=== PATIENT | male | born 1960 | race Caucasian/White ===

== ENCOUNTER 2020-07-13 11:07 | Outpatient (NON) | payer OTHER, SELFPAY ==
[2020-07-14 18:19] LABS: SARS-CoV-2 RNA PCR Negative
== END 2020-07-13 11:08 ==
LOC: ANHCOVIDDT 11:09
PROVIDERS: PCP Family Medicine; Visit Provider Family Medicine
DX: R05 Cough (principal); R50.9 Fever, unspecified; Z20.828 Contact with and (suspected) exposure to other viral communicable diseases
CPT/HCPCS: 87635; C9803; U0003

== ENCOUNTER 2020-12-04 17:16 | Outpatient (CLI) | payer OTHER, SELFPAY ==
--- NOTE | ~2020-12-04 | XR_ITS ---
EXAMINATION: XR shoulder RT min 2V EXAM DATE: 12/04/2020 17:38 INDICATION: No known recent injury provided at this time. Pain of the right shoulder. TECHNIQUE: The following right shoulder projections obtained: frontal projection with internal rotati on, frontal projection with external rotation, Grashey, and scapular Y view (4+ views). There is no prior study for comparison. FINDINGS: No evidence of right shoulder rotator cuff calcific tendinosis. There is moderate glenohum eral and acromioclavicular joint primary osteoarthritis. There are no acute fractures or dislocations identified. There is no subcutaneous gas. The soft tissue is unremarkable. There are no radiopaq ue foreign bodies. IMPRESSION: Moderate right shoulder osteoarthritis. Reviewed, dictated and finalized at location A.
== END 2020-12-04 17:17 | disposition home or self-care (01) ==
PROVIDERS: PCP Family Medicine; Visit Provider Family Medicine
DX: M19.011 Primary osteoarthritis, right shoulder (principal)
CPT/HCPCS: 73030

== ENCOUNTER 2022-04-28 11:47 | Outpatient (CLI) | payer OTHER, SELFPAY ==
--- NOTE | 2022-04-28 12:39 | ECG_ITS ---
Measurements Intervals [place] Rate: 73 P: 17 NV: 164 QRS: -1 QRSD: 90 T: 23 QT: 377 QTc: 417 Interpretive Statements SINUS RHYTHM BASELINE ARTIFACT PRESENT NO PREVIOUS ECG AVAILABLE FOR COMPARISON Electronically Signed On 04-28-2022 17:34:03 CDT by Jairon Bryan M.D.
[2022-04-28 13:03] LABS: Basophils Percent Auto 0.5 % (0.2-1.2); Eosinophils Absolute Auto 0.1 K/mm3 (0-0.3); Eosinophils Percent Auto 1.9 % (0-4.4); Hematocrit 42.2 % (42.0-52.0); Hemoglobin 13.9 g/dL (14.0-18.0); Immature Granulocyte Absolute 0.01 K/mm3 (0.00-0.031); Immature Granulocyte Percent A 0.2 % (0-0.5); Lymphocytes Absolute Auto 1.42 K/mm3 (0.9-3.2); Lymphocytes Percent Auto 24.4 % (18.3-44.2); Mean Corpuscular HGB Conc 32.9 g/dl (32-36); Mean Corpuscular Hemoglobin 28.8 pg (26-34); Mean Corpuscular Volume 87.4 fl (80-100); Mean Platelet Volume 8.5 fl (7.4-10.4); Monocytes Absolute Auto 0.5 K/mm3 (0.1-0.6); Monocytes Percent Auto 9.1 % (2.6-8.5); Neutrophils Absolute Auto 3.7 K/mm3 (1.3-6.7); Neutrophils Percent Auto 63.9 % (45.5-73.1); Platelet Count Result 224 k/mm3 (150-375); Red Blood Count 4.83 M/mm3 (4.6-6.20); Red Cell Distribution Width 12.9 % (11.5-14.5); White Blood Count 5.8 K/mm3 (4.5-10.0)
== END 2022-04-28 11:48 | disposition home or self-care (01) ==
LOC: ANHSURGERY 11:54
PROVIDERS: PCP Family Medicine; Visit Provider Orthopaedic Surgery
DX: M19.011 Primary osteoarthritis, right shoulder (principal); I10 Essential (primary) hypertension; Z01.818 Encounter for other preprocedural examination
CPT/HCPCS: 36415; 85025; 87081; 93005

== ENCOUNTER 2022-05-26 01:58 | Day surgery (SDC) | payer OTHER, SELFPAY ==
[2022-04-28 12:12] VITALS: BP 120/72; PULSE 83; RESP 16; TEMP 36.7; O2SAT 100; BMI 27.0
--- NOTE | 2022-04-28 12:22 | PC.NURSE ---
Report to the Outpatient Waiting Room, entrance under the green pavilion located off [facility], at time _6:00am on date __05/26/22 . OR Time: __7:30am . Time changes happen often and if your time is changed the preop area will call you the afternoon before. - You and your visitor will be asked to self-screen and do not enter if you have any COVID symptoms. - Only one visitor and NO children visitors are allowed at this time. - The patient visitor is requested to leave or wait in car when not with patient due to restrictions. - A mask is required within the hospital. Patients may have clear liquids (water, carbonated beverages, clear teas, apple juice) until 3 hours prior to surgery with a maximum of 20 ounces. - No food from midnight until time of surgery Take the following medications with a SIP of water the morning of surgery: __none Medications to discontinue per physician ___hold diclofenac 7 days pre-op Date to take last dose____05/19/22 Please no make-up, nail albanian, hairspray, perfume, deodorant, or body powder the day of surgery. No jewelry (including any body piercings) or valuables the day of surgery, leave them at home. Please take a shower or bath the night before, or the morning of, surgery with an antibacterial soap. Wear comfortable, loose fitting clothing. Children are encouraged to wear pajamas. - Jewelry must be removed prior to entering the operating room. Rings and piercings that are not removed may be cut off. - The hospital will not accept responsibility for valuables. - Please leave all valuables, including medications, at home the day of surgery. If you are going home after surgery, a licensed regional truck driver must drive you home. - NO public transportation without another adult. - We recommend that an adult stay with you for 24 hours following discharge. - We also recommend that you do not drive, make important decision, drink alcoholic beverages, or take any drugs that were not prescribed by your health care provider for at least 24 hours after your discharge time. Follow any additional instructions given to you from your surgeon. If you or anyone in your household have experienced Covid symptoms in the past week, please notify your surgeon or the nurse liaison at the phone number below for possible testing. Telephone instructions given to _patient and wife and asked if any additional questions and then verbalized understanding. Patient advised to call surgeon office or pre surgery nurse liaison [phone] if any additional questions.
[2022-05-26] VITALS (16 sets, daily range): BP systolic 121–148; BP diastolic 60–94; PULSE 80–116; RESP 12–25; TEMP 36.3–36.8; O2SAT 94–100
--- NOTE | ~2022-05-26 | XR_ITS ---
EXAMINATION: XR shoulder RT min 2V DATE: 05/26/2022 11:48 INDICATION: Right shoulder arthroplasty TECHNIQUE: 2 views right shoulder FINDINGS: There is a right shoulder arthroplasty in expected position. Subcutaneous gas with soft ti ssue swelling are consistent with recent surgery. IMPRESSION: 1. Recent right shoulder arthroplasty. Reviewed, dictated and finalized at location A.
--- NOTE | ~2022-05-26 | CT_ITS ---
EXAMINATION: CTA chest PE protocol DATE: 05/26/2022 15:06 INDICATION: Generalized chest pain following shoulder replacement. TECHNIQUE: Computed tomography (CT) pulmonary angiogram of the chest was performed with 100 mL Omnipa que-350 intravenous contrast. Additional 3D reconstructions utilizing coronal maximum intensity proje ction (MIP) were performed. Automated exposure control and iterative reconstruction technique were em ployed. The dose-length product was 805.35 mGy-cm. COMPARISON: None FINDINGS: Good contrast opacification of the pulmonary arteries. There is moderate streak artifact from dense c ontrast in the left brachiocephalic vein, superior vena cava and right atrium as well as from the rec ently placed incompletely visualized right total shoulder arthroplasty. Minimal scattered respiratory motion artifact which does not significantly limit evaluation. No pulmonary embolism. Partial collap se of the right lower lobe. Minimal dependent atelectasis in the left lower lobe. Calcified left lowe r lobe nodule and calcified left hilar and mediastinal lymph nodes consistent with old granulomatous disease. No pneumonia, pulmonary edema or pleural effusion. Heart size is normal. No pericardial effu gisell. Thoracic aorta is normal in caliber with no dissection. No pathologically enlarged thoracic lym phadenopathy. Small sliding-type hiatal hernia. Right renal cysts the largest measuring 4.5 cm. Chron ic mild anterior wedging at T7 and T8. Small amount of postoperative soft tissue gas about the right shoulder. IMPRESSION: 1. No pulmonary embolism. 2. Partial collapse of the right lower lobe. 3. Small sliding-type hiatal hernia. Reviewed, dictated and finalized at location B.
--- NOTE | 2022-05-26 06:38 | WPDANESEPPF ---
Anes - Initial Pre Proc Eval Procedure: Operation Date: 05/26/22 07:30 Proposed Procedures p Anatomic Right Total Shoulder Arthroplasty - Keanu Zaragoza MD Date/Time: 05/26/22 06:38 Surgeon: Keanu Zaragoza MD Pre Op Diagnosis: glenohumeral joint arthritis right shoulder Patient Data Age: 62 Gender: M Height: 1.75 m Weight: 82 kg Last Vital Signs Temp 36.6 C 05/26/22 06:10 Pulse 80 05/26/22 06:10 Resp 18 05/26/22 06:10 BP 134/94 H 05/26/22 06:10 Pulse Ox 100 05/26/22 06:10 O2 Del Method Room Air 05/26/22 06:10 Allergies Allergy/AdvReac Type Severity Reaction Status Date / Time No Known Allergies Allergy Unknown Verified 05/26/22 06:05 Home Medications Medication Instructions Recorded Confirmed Type calcium carbonate 400 mg calcium 400 mg PO DAILY PRN Indigestion 12/14/21 05/16/22 History (1,000 mg) chewable tablet (Tums Ultra) diclofenac sodium 1 % topical gel 2 g topical QID PRN Pain 12/14/21 05/16/22 History esomeprazole magnesium 20 mg 20 mg PO DAILY 12/14/21 05/16/22 History capsule,delayed release (Nexium) lisinopril 10 mg tablet 10 mg PO DAILY 12/14/21 05/16/22 History rosuvastatin 5 mg tablet 5 mg PO DAILY 12/14/21 05/16/22 History Patient hx anesthesia problems: none Family hx anesthesia problems: none Results Review: All pre-operative results and documents have been reviewed as part of the pre-operative evaluation. [facility] Past Medical History Medical History Abnormal liver function Gastroesophageal reflux disease without esophagitis Hx of colonic polyp Hyperlipidemia Hypertension Family History Family History Other Malignant neoplasm of prostate Social History Social History Smoking packs per day: 1 Smoking cigarettes per day: 20.0 Years smoked: 11 Smoking pack-years: 11.00 Smoking status: Former smoker Tobacco type: cigarettes Smoking end date: 01/21/85 Alcohol intake: current Drinks per week: 7 Substance use: never Has the Lack of Transportation Kept You From Medical Appointments or From Getting Medications?: No Within the Past 12 Months, Were You Worried Whether Your Food Would Run Out Before You Got Money to Buy More?: Never True What is Your Housing Situation Today?: I Have Housing Are You Worried That in the Next 2 Months, You May Not Have Your Own Housing to Live In?: No Do You Have Trouble Paying Your Heating Or Electricity Bill?: No Do You Have Trouble Paying For Medicines?: No Are You Currently Unemployed and Looking for Work?: No Highest Level of Education Completed: Trade/Vocational Certificate Do You Have Trouble With Childcare or the Care of a Family Member?: No Living arrangements: with family Additional living arrangements comments: Spiritual care concerns: No Anes - Eval Final PreProcedure Day of Procedure 05/26/22 06:38 Patient weight: overweight Heart: regular rate and rhythm Lungs: clear to auscultation Airway: Mallampati scale class II Neurological: alert and oriented Last oral intake: >/= 8 hours ASA classification: II Emergent: no Anesthetic plan: proceed Anesthesia type and monitoring: general ETT and standard monitoring Results Review: All pre-operative results and documents have been reviewed as part of the pre-operative evaluation. Informed Consent: The patient's anesthetic plan and its attendant risks and benefits were discussed with the patient/family/POA. Questions were solicited and answers provided to the satisfaction of the patient/family/POA.
[2022-05-26] MEDS: LACTATED RINGERS 1,000 ML 30 ML IV CONT ×3 (06:39→12:06)
[2022-05-26] MEDS: ACETAMINOPHEN 500 MG TABLET 1000 MG PO (06:51)
[2022-05-26] MEDS: TRANEXAMIC ACID 1,000MG/ISO100 1,000 MG/100 ML BAG 200 MG IVPB (06:52)
--- NOTE | 2022-05-26 07:19 | WPDHPUPDATE1 ---
History and Physical Update Update Date/Time: 05/26/22 07:19 History and Physical has been reviewed, including an updated exam of the patient. There are NO changes in the patient's condition. Risks, benefits, and alternatives have been discussed and questions answered. Patient agrees to proceed with procedure.
--- NOTE | 2022-05-26 07:32 | WPDANESPNB ---
Anes - Peripheral Nerve Block Date/Time: 05/26/22 07:32 I have discussed with the patient/family/POA the placement of a peripheral nerve block for post-operative pain management, including associated risks, benefits, complications, and side effects. Alternative methods of post-operative analgesia were detailed. Questions were solicited and answers provided to the satisfaction of the patient/family/POA. Time-Out: A pre-procedural Time-Out was completed immediately before starting the procedure and confirmed: Patient Identification, Site, Procedure, Patient Position and the Availability of Requisite Equipment. Clinical Indications: Acute post-operative pain management requested by the operative surgeon. Nerve Block Insertion Note Anes-nerve block: interscalene right Skin prep: chlorhexidine Needle: 22 gauge, stimulating, insulated echogenic needle. Needle length: 50 mm Technique: ultrasound Injectate: bupivacaine 0.5% with epi 5 mcg/ml (30cc no epi) and dexamethasone (mg) (8) Observations: tolerated well Complications: none Procedure start time:: 720 Procedure end time:: 725
[2022-05-26] MEDS: ceFAZolin 2 GM/D5W 50 ML 2 GM/50 ML BAG IVPB ×3 (07:33→23:31)
[2022-05-26] MEDS: VANCOMYCIN HCL 1,000 MG VIAL 1000 MG TOPICAL (08:33)
[2022-05-26] MEDS: HYDROGEN PEROXIDE 3% SOLN(*SP) 473 ML BOTTLE 237 ML IRRIGATION (08:34)
--- NOTE | 2022-05-26 13:00 | ADMGEN ---
This patient, Uri Olivares, was admitted to Medical Room 250-01. Patient/family oriented to hospital policies and general routines including ID bracelet, bed and alarms, visiting hours, pain management, procedures, bathroom and other care routines, personal items, smoking policy, room service/diet, and visiting hours. Information on how to activate the Rapid Response Team has been discussed. Patient/Family are encouraged to report perceived risks to care and to ask questions if they do not understand what they are told or what they should do.
[2022-05-26] MEDS: SODIUM CHLORIDE 0.9% IV 1,000 ML 125 ML IV CONT (13:12)
--- NOTE | 2022-05-26 13:13 | ECG_ITS ---
Measurements Intervals [place] Rate: 102 P: 28 WV: 168 QRS: -2 QRSD: 114 T: 3 QT: 368 QTc: 480 Interpretive Statements SINUS TACHYCARDIA DELAYED PRECORDIAL R/S TRANSITION NONSPECIFIC ST & T-WAVE ABNORMALITY- INF/HIGH LAT LEADS BORDERLINE ECG COMPARED TO ECG 04/28/2022 13:00:06 SINUS TACHYCARDIA NOW PRESENT T-WAVE ABNORMALITY NOW PRESENT Electronically Signed On 05-26-2022 13:30:46 CDT by Grant Mead D.O.
[2022-05-26 13:32] LABS: Basophils Percent Auto 0.1 % (0.2-1.2); Hematocrit 37.5 % (42.0-52.0); Hemoglobin 12.5 g/dL (14.0-18.0); Immature Granulocyte Absolute 0.05 K/mm3 (0.00-0.031); Immature Granulocyte Percent A 0.4 % (0-0.5); Lymphocytes Absolute Auto 0.31 K/mm3 (0.9-3.2); Lymphocytes Percent Auto 2.7 % (18.3-44.2); Mean Corpuscular HGB Conc 33.3 g/dl (32-36); Mean Corpuscular Hemoglobin 28.9 pg (26-34); Mean Corpuscular Volume 86.6 fl (80-100); Mean Platelet Volume 8.5 fl (7.4-10.4); Monocytes Absolute Auto 0.1 K/mm3 (0.1-0.6); Monocytes Percent Auto 0.8 % (2.6-8.5); Neutrophils Absolute Auto 10.9 K/mm3 (1.3-6.7); Platelet Count Result 200 k/mm3 (150-375); Red Blood Count 4.33 M/mm3 (4.6-6.20); Red Cell Distribution Width 12.7 % (11.5-14.5); White Blood Count 11.4 K/mm3 (4.5-10.0)
[2022-05-26 13:49] LABS: Alanine Aminotransferase 27 U/L (6-50); Alkaline Phosphatase 64 U/L (38-126); Anion Gap 13 mmol/L (8-16); Aspartate Amino Transferase 29 U/L (17-59); Bilirubin,Total 0.4 mg/dL (0.2-1.3); Blood Urea Nitrogen 17 mg/dL (9-20); Calcium 8.2 mg/dL (8.4-10.2); Carbon Dioxide 23 mmol/L (22-30); Chloride 101 mmol/L (98-107); Estimated CRCL calculation 81 ml/min; Estimated Glomerular Filt Rate > 60; Glucose 164 mg/dL (65-110); Potassium 3.4 mmol/L (3.4-5.0); Sodium 137 mmol/L (137-145)
[2022-05-26 13:56] LABS: Creatine Kinase 277 U/L (55-170)
[2022-05-26 14:09] LABS: Troponin I < 0.012 ng/mL (0.000-0.034)
[2022-05-26 14:11] LABS: Platelet Estimate Adequate (Adequate); Schistocytes None Seen (NORMAL)
[2022-05-26] MEDS: PANTOPRAZOLE SODIUM IV 40 MG VIAL IV PUSH (14:39)
--- NOTE | 2022-05-26 15:02 | PM.IMCN ---
Assessment and Plan Assessment and plan (1) Chest pressure: Code(s): R07.89 - Other chest pain Status: Acute Assessment and Plan: -the stated that sometimes the patient gets like this when he has acid reflux. -chest CTA was negative for pulmonary emboli. His partial collapse of the right lower lobe. I did order incentive spirometer. He also has a small sliding type hiatal hernia. -the pain did not radiate to his neck or his arm and the patient was not diaphoretic. The patient was only complaining of some chest tightness. -continue to trend cardiac enzymes. -I did consult Cardiology for ST changes. -I reviewed the EKG with cardiology he stated that there was no new ischemic changes. So I will cancel the consult. (2) Aftercare following right shoulder joint replacement surgery: Code(s): Z47.1 - Aftercare following joint replacement surgery; Z96.611 - Presence of right artificial shoulder joint Status: Acute Assessment and Plan: -postop care per orthopedic physician. Surgical site care per orthopedic doctor. -pain management per orthopedic doctor. The patient is on Tylenol and Mobic as well as oxycodone DVT prophylaxis per orthopedic physician. The patient is on SCDs and TEDs. (3) Hyperlipidemia: Code(s): E78.5 - Hyperlipidemia, unspecified Status: Acute Assessment and Plan: -continue with Crestor and heart healthy diet (4) Hypertension: Code(s): I10 - Essential (primary) hypertension Status: Acute Assessment and Plan: -continue with lisinopril and check daily BMP. HPI Data of Consult Consult date: 05/26/22 Requesting Physician: Keanu Zaragoza MD Primary Care Provider: Tesfaye Singh MD Consult Narrative Narrative: Uri Olivares is a 62 year old male who is a left-hand dominant male patient patient has been complaining of consistent right shoulder pain which is diffuse and worse with reaching and over head activities. His symptoms have progressively gotten worse. It affects his sleep when he has pain at night. His tried nonsteroidal anti-inflammatory medication in the past. The patient decided to undergo anatomic right shoulder shoulder arthroplasty. See operative note. The patient started to complain of midsternal pressure without any radiation. No nausea no vomiting and no diaphoresis. The stated that the patient gets these complaints sometimes with his acid reflux. CTA was ordered. EKG was ordered. EKG was read as sinus tachycardia. Nonspecific ST and T-wave MRI abnormality. The patient is admitted to outpatient procedure extended recovery order in the hospitalist group was asked to consult on this patient on the date of service of 05/26/2022. Review of Systems Review of Systems: See HPI All systems reviewed & are unremarkable except as noted in HPI and below Constitutional: Constitutional: Reports as per HPI and Reports no additional constitutional complaints Eyes: Eyes: Reports as per HPI and Reports no additional eye complaints ENT: Reports system reviewed and no additional complaints, except as documented and Reports Normal hearing present Cardiovascular: Cardiovascular: Reports no additional cardiovascular complaints Respiratory: Respiratory: Reports no additional respiratory complaints and Reports no additional respiratory complaints Gastrointestinal: Gastrointestinal: Reports as per HPI and Reports no additional gastrointestinal complaints Musculoskeletal: Musculoskeletal: Reports no additional musculoskeletal complaints Integumentary/Breasts: Skin/Breast: Reports system reviewed and no additional complaints, except as docu and Reports as per HPI Neurologic: Reports system reviewed and no additional complaints, except as documented, Reports as per HPI and Reports Normal hearing present Psychiatric: Psychiatric: Reports no additional psychiatric complaints and Reports as per HPI Endocrine: Endocrine: Re
--- NOTE | 2022-05-26 15:11 | PCOTNOTE ---
Attempted to see pt. for occupational therapy evaluation. Pt. returning from testing, still reporting nausea and residual sedation. Pt. and nursing requested to wait on evaluation. Following
--- NOTE | 2022-05-26 15:21 | PCPTNOTE ---
Attempted to see pt. for Physical therapy evaluation. Pt. returning from testing, still reporting nausea and residual sedation. Pt. and nursing requested to wait on evaluation. Following
--- NOTE | 2022-05-26 15:40 | ECG_ITS ---
Measurements Intervals [place] Rate: 108 P: 33 ID: 189 QRS: -2 QRSD: 102 T: 3 QT: 356 QTc: 479 Interpretive Statements SINUS TACHYCARDIA BORDERLINE R WAVE PROGRESSION, ANTERIOR LEADS BORDERLINE T WAVE ABNORMALITY- INFERIOR LEADS ABNORMAL ECG COMPARED TO ECG 05/26/2022 13:23:59 NO SIGNIFICANT CHANGES Electronically Signed On 05-26-2022 19:05:09 CDT by Grant Mead D.O.
[2022-05-26] MEDS: ASPIRIN 81 MG CHEWABLE TABLET 324 MG PO (15:44)
[2022-05-26 16:47] LABS: Troponin I < 0.012 ng/mL (0.000-0.034)
--- NOTE | 2022-05-26 16:56 | W.PM.PROC2 ---
Procedure Note - Detailed Date of Procedure 05/26/22 Pre-op Diagnosis glenohumeral joint arthritis right shoulder Post-op Diagnosis Same Procedure Performed 1. Anatomic total shoulder arthroplasty, right 2. Lesser tuberosity osteotomy, right Surgeon Keanu Zaragoza MD Harness Puller Kirsten Andre PA-C Anesthesia General and Regional (Interscalene block.) Findings Excellent bone quality. Thickened and tight capsule released posteriorly. No significant version correction required. Anatomic neck cut at 25 degrees. Description of Procedure The patient was given an interscalene block in the preoperative area. Preoperative antibiotics were given. The patient was transferred to the operating room and a general anesthetic was administered. The beach chair position was used at 35 degrees. All bony prominences were padded. The head was carefully stabilized on the [place] head athletic trainer. A sterile prep and drape was performed in the usual manner with Chloraprep. A longitudinal incision was created at the anterior shoulder just lateral to the deltopectoral interval. Careful dissection was performed to expose the interval and protect the cephalic vein. The vein was retracted medially. The upper border of the pectoralis was released. Anterior circumflex vessel branches were suture ligated. The biceps was tenodesed. A small lesser tuberosity osteotomy was performed after opening the joint capsule at the rotator interval. The inferior capsule was released, exposing the humeral head. Osteophytes were removed. Care was taken to stay on bone to protect the axillary nerve. A Fukuda was placed in the joint. The subscapularis was mobilized, the inferior capsule and long head of triceps released, and the superior and middle glenohumeral ligaments released as well. Attention was turned to the humerus again. The anatomic head cut was taken with the oscillating saw. Sounding and broaching was performed. The neck anteversion and inclination were carefully assessed. Head sizing and offset were determined. The cut protector was placed, and attention was turned to the glenoid. Retractors were placed. Releases were carried out for exposure, including the posterior capsule. Labral tissue was resected. The sizing template was used and a guide pin was placed. No deformity correction was performed. The reamer was placed over the guide pin taken down to create a 2-3 millimeter minimal wall. The peg drill guide was applied and the pegs drilled. The trial component was placed and fit very nicely. Excellent stability was confirmed. The real component was cemented into position. Excess cement was carefully removed. The humerus was prepared for subscapularis repair with the drilling and passage of 3 suture leaders. The real humeral stem and head were impacted into position. The shoulder was copiously irrigated periodically with pulsatile lavage. The shoulder was reduced and the subscapularis repaired with number 5 Ethibond suture modified Shahbaz-Thaddeus sutures, and reinforced with multiple number 2 Ethibond suture. An additional ethibond suture was placed around the implant neck. The rotator interval was reapproximated laterally. The biceps tenodesis was incorporated with the pectoralis tendon repair using #2 Ethibond suture. The deltopectoral space was reapproximated with 2-0 Vicryl. The remaining tissue was closed with 0 Quill and 2-0 Quill running suture and steri-strips. A sterile dressing and shoulder immobilizer was placed. The patient was transferred to the recovery room. Physician liaison inspection laboratory assistant, Kirsten Andre PA-C, required for surgery; including patient positioning, draping, tissue retraction, maintaining instrument position, cement removal, wound closure, and dressing placement. Implants Shoulder Innovations Inset Shoulder System; humeral short stem size 1 Offset Humeral Head 18 x 46. Glenoid Circular In Line Peg 24 x 6mm. Tranzuy CMW 2 (quick set) Gentamicin Bone Cement 20 g. Estim
[2022-05-26] MEDS: SENNA/DOCUSATE SODIUM TABLET 2 TAB PO (17:20)
[2022-05-26] MEDS: MELOXICAM 7.5 MG TABLET PO (17:20)
[2022-05-26] MEDS: SCOPOLAMINE 1.5 MG PATCH TRANSDERM (18:20)
[2022-05-26 20:50] LABS: Troponin I < 0.012 ng/mL (0.000-0.034)
[2022-05-27] VITALS: PULSE 93
[2022-05-27 04:00] VITALS: PULSE 84
[2022-05-27 05:49] LABS: Hematocrit 34.5 % (42.0-52.0); Hemoglobin 11.4 g/dL (14.0-18.0); Immature Granulocyte Absolute 0.05 K/mm3 (0.00-0.031); Immature Granulocyte Percent A 0.5 % (0-0.5); Lymphocytes Absolute Auto 0.99 K/mm3 (0.9-3.2); Lymphocytes Percent Auto 9.4 % (18.3-44.2); Mean Corpuscular Hemoglobin 28.2 pg (26-34); Mean Corpuscular Volume 85.4 fl (80-100); Mean Platelet Volume 8.6 fl (7.4-10.4); Monocytes Absolute Auto 0.9 K/mm3 (0.1-0.6); Monocytes Percent Auto 8.6 % (2.6-8.5); Neutrophils Absolute Auto 8.6 K/mm3 (1.3-6.7); Neutrophils Percent Auto 81.5 % (45.5-73.1); Platelet Count Result 197 k/mm3 (150-375); Red Blood Count 4.04 M/mm3 (4.6-6.20); Red Cell Distribution Width 12.9 % (11.5-14.5); White Blood Count 10.5 K/mm3 (4.5-10.0)
[2022-05-27 06:01] LABS: Anion Gap 9 mmol/L (8-16); Blood Urea Nitrogen 14 mg/dL (9-20); Calcium 7.9 mg/dL (8.4-10.2); Carbon Dioxide 24 mmol/L (22-30); Chloride 103 mmol/L (98-107); Estimated CRCL calculation 81 ml/min; Estimated Glomerular Filt Rate > 60; Glucose 115 mg/dL (65-110); Potassium 3.8 mmol/L (3.4-5.0); Sodium 136 mmol/L (137-145)
[2022-05-27 06:20] VITALS: BP 122/61; PULSE 94; RESP 16; TEMP 36.9; O2SAT 98
[2022-05-27] MEDS: ASPIRIN 81 MG ENTERIC TABLET PO (09:13)
[2022-05-27] MEDS: ceFAZolin 2 GM/D5W 50 ML 2 GM/50 ML BAG IVPB (09:13)
[2022-05-27] MEDS: SENNA/DOCUSATE SODIUM TABLET 2 TAB PO (09:15)
[2022-05-27] MEDS: MELOXICAM 7.5 MG TABLET PO (09:15)
[2022-05-27] MEDS: ROSUVASTATIN 5 MG TABLET PO (09:15)
[2022-05-27] MEDS: polyethylene glycoL 3350 17 GM POWD.PACK PO (09:16)
[2022-05-27] MEDS: lisinopriL 10 MG TABLET PO (09:16)
[2022-05-27] MEDS: PANTOPRAZOLE 40 MG TABLET PO (09:16)
[2022-05-27 10:52] VITALS: BP 116/62; PULSE 89; RESP 19; TEMP 36.6; O2SAT 99
--- NOTE | 2022-05-27 10:53 | PM.DS ---
DS: Admitting Diagnosis Discharge Date 05/27/22 Admitting Diagnosis Glenohumeral joint arthritis right shoulder DS: Discharge Diagnosis Discharge Diagnosis (1) Status post total replacement of right shoulder: Code(s): Z96.611 - Presence of right artificial shoulder joint Status: Acute Assessment and Plan: Postop day 1: Right anatomic total shoulder arthroplasty. Patient tolerated procedure well. Patient did have some chest pressure last night. Troponin normal, EKG same as previous EKG, Chest CTA negative for PE. This has gotten better. He has a sliding hernia and notes that he gets this pain sometimes. He did have trouble urinating last night but this has resolved today. No chest pain today. I recommend he see his PCP within 1 week to follow up on chest pressure. Shoulder pain manageable with pain medication. No numbness or tingling. We had a lengthy discussion regarding postoperative wound care, limitations, expectations, and exercises. Patient shows good understanding. He has had initial physical therapy and is tolerating it well. DVT prophylaxis: 81 mg baby aspirin b.i.d. for 14 days. Compression socks. Frequent walks. Pain medication: Percocet. Meloxicam. Patient has followup appointment with Dr. Zaragoza in 3 weeks. DS: Summary Hospital Course Hospital Course: Right anatomic total shoulder arthroplasty. No complications. Patient has had initial physical therapy and occupational therapy. Status at Discharge Functional status at discharge: independent ambulation Overall status at discharge: patient is progressing back to baseline Time Spent with Patient Time attestation: Total time spent providing and/or coordinating discharge services: Exam Narrative: Overweight 62 y/o Male. Alert and oriented x3. No acute distress. Resting comfortably in chair. Wearing sling. Dressing dry and intact with no drainage. Moderate swelling. Mild ecchymosis. No erythema. Range of motion limited due to pain. Good finger, wrist, elbow range of motion. Neurologic status intact. Light touch sensation intact. Normal capillary refill. No varicosities. Distal pulses palpable. DS: Data Data Completed and Pending Labs on day of discharge: Labs from last 24 hours 05/27/22 05/27/22 05/26/22 05:31 05:31 20:21 WBC 10.5 H RBC 4.04 L Hgb 11.4 L Hct 34.5 L MCV 85.4 MCH 28.2 MCHC 33.0 RDW 12.9 Plt Count 197 MPV 8.6 Immature Gran % (Auto) 0.5 Neut % (Auto) 81.5 H Lymph % (Auto) 9.4 L [place] % (Auto) 8.6 H Eos % (Auto) 0.0 Baso % (Auto) 0.0 L Lymph # (Auto) 0.99 Converse # (Auto) 0.9 H Eos # (Auto) 0.0 Baso # (Auto) 0.0 Abs Immat Gran (auto) 0.05 H Absolute Neuts (auto) 8.6 H Absolute Nucleated RBC 0.0 Nucleated RBC % 0.0 Platelet Estimate Schistocytes Sodium 136 L Potassium 3.8 Chloride 103 Carbon Dioxide 24 Anion Gap 9 BUN 14 Creatinine 0.80 Estim Creat Clear Calc 81 Estimated GFR > 60 Glucose 115 H Calcium 7.9 L Total Bilirubin AST ALT Alkaline Phosphatase Total Creatine Kinase CK-MB (CK-2) Troponin I < 0.012 Total Protein Albumin 05/26/22 05/26/22 05/26/22 16:15 13:20 13:20 WBC 11.4 H RBC 4.33 L Hgb 12.5 L Hct 37.5 L MCV 86.6 MCH 28.9 MCHC 33.3 RDW 12.7 Plt Count 200 MPV 8.5 Immature Gran % (Auto) 0.4 Neut % (Auto) 96.0 H Lymph % (Auto) 2.7 L [place] % (Auto) 0.8 L Eos % (Auto) 0.0 Baso % (Auto) 0.1 L Lymph # (Auto) 0.31 L [place] # (Auto) 0.1 Eos # (Auto) 0.0 Baso # (Auto) 0.0 Abs Immat Gran (auto) 0.05 H Absolute Neuts (auto) 10.9 H Absolute Nucleated RBC 0.0 Nucleated RBC % 0.0 Platelet Estimate Adequate Schistocytes None seen Sodium 137 Potassium 3.4 Chloride 101 Carbon Dioxide 23 Anion Gap 13 BUN 17 Creatinine 0.80 Estim C
--- NOTE | 2022-05-27 13:10 | PM.IMPN ---
Progress Note: A&P Assessment and Plan (1) Status post total replacement of right shoulder: Code(s): Z96.611 - Presence of right artificial shoulder joint Status: Acute (2) Hyperlipidemia: Code(s): E78.5 - Hyperlipidemia, unspecified Status: Acute (3) Hypertension: Code(s): I10 - Essential (primary) hypertension Status: Acute (4) Arthritis of shoulder region, right: Code(s): M19.011 - Primary osteoarthritis, right shoulder Status: Acute (5) Atypical chest pain: Code(s): R07.89 - Other chest pain Status: Acute Plan 05/26/22 -the stated that sometimes the patient gets like this when he has acid reflux. -chest CTA was negative for pulmonary emboli.? His partial collapse of the right lower lobe.? I did order incentive spirometer.? He also has a small sliding type hiatal hernia. -the pain did not radiate to his neck or his arm and the patient was not diaphoretic.? The patient was only complaining of some chest tightness. -continue to trend cardiac enzymes. -I did consult Cardiology for ST changes. -I reviewed the EKG with cardiology he stated that there was no new ischemic changes.? So I will cancel the consult. -postop care per orthopedic physician. Surgical site care per orthopedic doctor.? -pain management per orthopedic doctor.? The patient is on Tylenol and Mobic as well as oxycodone DVT prophylaxis per orthopedic physician.? The patient is on SCDs and TEDs. -continue with Crestor and heart healthy diet -continue with lisinopril and check daily BMP. 05/27/22 pain resolved yesterday workup negative x PE ACS ruled out pt is medically cleared for dc Subjective Date/time seen: 05/27/22 13:10 pt denies chest pain, shoulder pain controlled Review of Systems Review of Systems: All systems reviewed & are unremarkable except as noted in HPI and below Exam Narrative: GEN: NAD, AAOx3, cooperative sitting in chair HEENT: NCAT, MMM, EOMI Neck: no JVD Heart: no chest wall tenderness Ext: moves all, no cyanosis, no clubbing, no edema , R shoulder covered in cooling pad, and R arm in exam ROM not examined Neuro: CN intact AAOx3 no focal deficits appreciated on gross physical exam Psych: mood and affect congruent Objective Data Vital Signs Vital Signs: Vital Signs - 24 hr 05/26/22 13:25 05/26/22 13:55 05/26/22 14:55 Temperature 97.3 F L 97.3 F L 97.5 F L Pulse Rate 100 102 H 103 H Respiratory Rate 18 20 18 Blood Pressure 130/63 129/69 143/72 H Pulse Oximetry 97 97 98 Oxygen Delivery 05/26/22 16:00 05/26/22 18:38 05/26/22 20:00 Temperature 97.4 F L Pulse Rate 116 H 105 H 105 H Respiratory Rate 18 Blood Pressure 122/70 Pulse Oximetry 98 Oxygen Delivery 05/26/22 21:40 05/26/22 23:35 05/27/22 00:00 Temperature 98.2 F 97.8 F Pulse Rate 100 91 93 Respiratory Rate 16 18 Blood Pressure 131/70 124/67 Pulse Oximetry 96 96 Oxygen Delivery 05/27/22 04:00 05/27/22 06:20 05/27/22 08:10 Temperature 98.4 F Pulse Rate 84 94 Respiratory Rate 16 Blood Pressure 122/61 Pulse Oximetry 98 Oxygen Delivery Room Air 05/27/22 10:52 Temperature 97.9 F Pulse Rate 89 Respiratory Rate 19 Blood Pressure 116/62 Pulse Oximetry 99 Oxygen Delivery Intake/Output Intake/Output: Intake & Output 05/24/22 05/25/22 05/26/22 05/27/22 23:59 23:59 23:59 23:59 Intake Total 2010 490 Output Total 150 950 Balance 1860 -460 Meds/Results Medications: Active Medications Generic Name Dose Route Start Last Admin Trade Name Daisha PRN Reason Stop Dose Admin Acetaminophen 1,000 mg 05/27/22 06:00 Acetaminophen 500 Mg Tablet PO Q6H PRN Pain Rated 1-3 Aspirin 81 mg 05/26/22 17:00 05/27/22 09:13 Aspirin 81 Mg Enteric Tablet PO 81 mg BID XIN Administration Cyclobenzaprine HCl 10 mg 05/26/22 12:37 Cyclobenzaprine Hcl 10 Mg Tablet PO Q8H PRN Spasms Diphenhydramine HC
--- NOTE | 2022-05-27 13:14 | PC.NURSE ---
On 05/27/22, the student, [Shameka Leon], provided care and completed [facility] documentation on this patient. I have reviewed the student's documentation and agree with the findings.
== END 2022-05-27 14:14 | disposition home or self-care (01) ==
LOC: ANHSURGERY 05:46 → ANH2MED 12:51
PROVIDERS: Nurse Practitioner; Physician Assistant Surgical; PCP Family Medicine; Visit Provider Orthopaedic Surgery
PROC: (CPT 23472; principal; 2022-05-26 07:30)
DX: M19.011 Primary osteoarthritis, right shoulder (principal); G89.18 Other acute postprocedural pain; R07.89 Other chest pain; I10 Essential (primary) hypertension; E78.5 Hyperlipidemia, unspecified; K21.9 Gastro-esophageal reflux disease without esophagitis; Z87.891 Personal history of nicotine dependence
CPT/HCPCS: 23472; 64415; 36415; 71275; 73030; 80048; 80053; 82550; 84484; 85025; 86850; 86900; 86901; 87081; 93005; 97110; 97161; 97165; A4565; A9270; C1713; C1776; C9113; J0131; J0171; J0690; J1100; J1885; J2250; J2270; J2370; J2405; J2704; J2710; J2795; J3010; J3370; J7030; J7120; Q9967

== ENCOUNTER 2022-09-01 06:43 | Outpatient (CLI) | payer OTHER, SELFPAY ==
[2022-09-01 08:32] LABS: Prostate Specific Antigen 3.4 ng/mL (< OR = 4.0)
== END 2022-09-01 06:44 | disposition home or self-care (01) ==
PROVIDERS: PCP Family Medicine; Visit Provider Urology
DX: R97.20 Elevated prostate specific antigen [PSA] (principal)
CPT/HCPCS: 36415; 84153

== ENCOUNTER 2023-07-02 18:07 | Emergency (ER) | payer MEDICARE, OTHER, SELFPAY ==
[2023-07-02] VITALS (15 sets, daily range): BP systolic 90–135; BP diastolic 63–80; PULSE 90–120; RESP 0–25; TEMP 37.2; O2SAT 96
--- NOTE | ~2023-07-02 | CT_ITS ---
EXAMINATION: CT cervical spine wo con DATE: 07/02/2023 19:15 INDICATION: trauma TECHNIQUE: Computed tomography (CT) of the cervical spine was performed without intravenous contrast. Automated exposure control and iterative reconstruction technique were employed. The dose-length pro duct was 391.31 mGy-cm. COMPARISON: None. FINDINGS: Vertebral Body Alignment: Intact. Reversal of the normal cervical lordosis. Craniocervical and atlantoaxial alignment: Moderate degenerative change. Alignment intact. Osseous structures/fracture: No evidence of a lytic or blastic process in the visualized spine. No e vidence of acute fracture. Cervical soft tissues: The paraspinal soft tissues planes are maintained. Degenerative changes: Multilevel moderate degenerative disc disease. Multilevel mild facet arthropath y. Multilevel moderate bilateral neural foraminal narrowing. No severe central canal narrowing. IMPRESSION: No acute fracture or traumatic malalignment in the cervical spine. Reviewed, dictated and finalized at location K. NG CAPTAIN
--- NOTE | ~2023-07-02 | CT_ITS ---
EXAMINATION: CT brain wo con DATE: 07/02/2023 19:15 INDICATION: trauma . TECHNIQUE: Computed tomography (CT) of the head was performed without intravenous contrast. The mA wa s adjusted according to patient size. Iterative reconstruction technique was employed. The dose-lengt h product was 605.33 mGy-cm. COMPARISON: None. FINDINGS: No acute intracranial hemorrhage or extra-axial fluid collection. No hydrocephalus, mass, or herniation. No acute ischemic infarct. Unremarkable dural venous sinus attenuation. No acute osseous abnormality. Ethmoid, maxillary, and sphenoid mucosal thickening, small air-fluid level in the sphenoid sinus, the remaining aerated spaces are clear. Mild atrophy and chronic white matter change. Mild atherosclerotic intracranial calcification. Minima l bilateral basal ganglia calcification IMPRESSION: No acute intracranial process. Air-fluid level in the sphenoid sinus may represent acute sinusitis or small volume mucosal hemorrhag e in the setting of trauma. Reviewed, dictated and finalized at location K. ER ON IMPRESSION: No acute intracranial process. Air-fluid level in the sphenoid sinus may represent acute sinusitis or small vo lume mucosal hemorrhage in the setting of trauma.
--- NOTE | ~2023-07-02 | XR_ITS ---
EXAMINATION: XR chest 2V Exam Date/Time: 07/02/2023 19:08 POULTRY PATHOLOGIST HISTORY: syncope Comparison: 07/17/2011. RESULT: Lines, tubes, and devices: Partially visualized right shoulder arthroplasty hardware. Lungs and pleura: Minimal linear bibasilar opacities, likely atelectasis/scar. Granulomas calcificat ion. Cardiomediastinal silhouette: Stable. Other: No acute osseous or upper abdominal finding. IMPRESSION: No acute cardiopulmonary process. Reviewed, dictated and finalized at location K. TRY PATHOLOGIST
--- NOTE | 2023-07-02 18:14 | ECG_ITS ---
Measurements Intervals [place] Rate: 109 P: 46 LA: 152 QRS: 4 QRSD: 93 T: 72 QT: 317 QTc: 427 Interpretive Statements SINUS TACHYCARDIA NONSPECIFIC T-WAVE ABNORMALITY POOR R-WAVE PROGRESSION ABNORMAL ECG COMPARED TO ECG 05/26/2022 16:40:13 T-WAVE ABNORMALITY NOW PRESENT Electronically Signed On 07-03-2023 12:41:07 CHAINER by Patrice Felix M.D.
--- NOTE | 2023-07-02 18:19 | ED.SYNCOPE ---
HPI - Syncope General Chief Complaint: Syncope Stated Complaint: SYNCOPY Time Seen by Provider: 07/02/23 18:14 History of Present Illness HPI narrative: Patient is a 63-year-old male with history of hypertension, hyperlipidemia, arthritis here with syncopal episode. Patient states that last night he began to feel unwell. He describes this was he felt like he was coming down with a cold. He noted a cough and myalgias. His his just been sick with similar symptoms. He notes that throughout the day today he did not get out of bed except to go to the bathroom. Just prior to presentation he got up to use the restroom. He notes that on his way back from the restroom he began feeling quite dizzy. He describes this as though he felt like he was going to pass out. He then was half way back from his bathroom to his bedroom when he had a syncopal episode falling on the ground and hitting the back of his head on his night stand. His heard him fall and called EMS. He remained on the floor until EMS arrived. He he does note that he has been having headache since yesterday, it may have gotten a bit worse since falling today. He notes that when EMS arrived he noted some left-sided chest pain which is nonradiating with no associated symptoms. He notes that it has been intermittent since this happened and is not currently present now. Related Data Home Medications Medication Instructions Recorded Confirmed calcium carbonate 400 mg calcium 400 mg PO DAILY PRN Indigestion 12/14/21 05/26/23 (1,000 mg) chewable tablet (Tums Ultra) esomeprazole magnesium 20 mg 20 mg PO DAILY 12/14/21 05/26/23 capsule,delayed release (Nexium) lisinopril 10 mg tablet 10 mg PO DAILY 12/14/21 05/26/23 rosuvastatin 5 mg tablet 5 mg PO DAILY 12/14/21 05/26/23 Allergies Allergy/AdvReac Type Severity Reaction Status Date / Time No Known Allergies Allergy Unknown Verified 07/02/23 18:14 Review of Systems Review of Systems: All systems reviewed & are unremarkable except as noted in HPI and below PMFSH Past Medical History Medical History Encounter for immunization Gastroesophageal reflux disease without esophagitis Hyperlipidemia Hypertension Impaired fasting glucose Surgical History Surgical History H/O colonoscopy with polypectomy 08/14/2018 History of arthroplasty of right shoulder (~05/26/22) Rt shoulder Anatomic total shoulder arthroplasty with Lesser tuberosity osteotomy Family History Family History Father Alcoholism Other Malignant neoplasm of prostate Social History Social History Social History: The patient is and lives with his Georgina. They have 3 children. 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 The patient quit smoking in 1984. The patient does not use any alcohol or marijuana or illicit drugs. His is the durable power sales performance manager for healthcare. Code status full code Smoking packs per day: 1 Smoking cigarettes per day: 20.0 Years smoked: 11 Smoking pack-years: 11.00 Smoking status: Former smoker Alcohol intake: current Drinks per week: 7 Substance use: never Lack of Transportation: No Lack of Food: Never True Current Housing: I Have Housing Concerned About Future Housing: No Difficulty Paying Gas/Electric Bills: No Difficulty Paying for Meds: No Currently Unemployed: No Education: Trade/Vocational Certificate Difficulty w/ Childcare or Family Care: No Living arrangements: with family Additional living arrangements comments: Occupation/Education: occupation Gender identity (if verbalized by the patient): Male Sexual Orientation (if Verbalized by the Patient): Straight or Heterosexual Spiritual care concerns: No Exam Narrative
[2023-07-02] MEDS: TETANUS,DIPHTHERIA,AC PERTUSSIS ADULT (0.5 ML) BOOSTRIX IM (18:35)
[2023-07-02] MEDS: SODIUM CHLORIDE 0.9% IV 1,000 ML 999 ML IV CONT ×2 (18:35→20:10)
[2023-07-02 18:48] LABS: Basophils Percent Auto 0.1 % (0.2-1.2); Hematocrit 40.8 % (42.0-52.0); Hemoglobin 13.3 g/dL (14.0-18.0); Immature Granulocyte Absolute 0.02 K/mm3 (0.00-0.031); Immature Granulocyte Percent A 0.2 % (0-0.5); Lymphocytes Absolute Auto 0.47 K/mm3 (0.9-3.2); Lymphocytes Percent Auto 5.7 % (18.3-44.2); Mean Corpuscular HGB Conc 32.6 g/dl (32-36); Mean Corpuscular Hemoglobin 27.6 pg (26-34); Mean Corpuscular Volume 84.6 fl (80-100); Mean Platelet Volume 8.8 fl (7.4-10.4); Monocytes Absolute Auto 0.8 K/mm3 (0.1-0.6); Monocytes Percent Auto 9.8 % (2.6-8.5); Neutrophils Absolute Auto 6.9 K/mm3 (1.3-6.7); Neutrophils Percent Auto 84.2 % (45.5-73.1); Platelet Count Result 203 k/mm3 (150-375); Red Blood Count 4.82 M/mm3 (4.6-6.20); Red Cell Distribution Width 12.9 % (11.5-14.5); White Blood Count 8.3 K/mm3 (4.5-10.0)
[2023-07-02 19:00] LABS: Alanine Aminotransferase 25 U/L (6-50); Albumin Level 4.5 g/dL (3.5-5.1); Alkaline Phosphatase 80 U/L (38-126); Anion Gap 7 mmol/L (8-16); Aspartate Amino Transferase 27 U/L (17-59); Bilirubin,Total 0.8 mg/dL (0.2-1.3); Blood Urea Nitrogen 13 mg/dL (9-20); Calcium 8.9 mg/dL (8.4-10.2); Carbon Dioxide 25 mmol/L (22-30); Chloride 100 mmol/L (98-107); Estimated CRCL calculation 72 ml/min; Estimated Glomerular Filt Rate > 60; Glucose 128 mg/dL (65-110); Potassium 3.9 mmol/L (3.4-5.0); Sodium 132 mmol/L (137-145)
[2023-07-02 19:11] LABS: Prothrombin Time 13.7 Seconds (11.1-14.7); Troponin I < 0.012 ng/mL (0.000-0.034)
[2023-07-02 19:12] LABS: Partial Thromboplastin Time 33.1 SECONDS (22.3-36.8)
[2023-07-02 19:18] LABS: D Dimer 0.49 ug/mL (<0.48)
[2023-07-02 19:34] LABS: Influenza A QL RT-PCR Negative (Negative); Influenza B QL RT-PCR Negative (Negative); RSV RNA, RT-PCR Negative (Negative); SARS-CoV-2 RNA PCR Positive (Negative)
--- NOTE | 2023-07-02 19:34 | PC.NURSE ---
patient states he is unable to provide urine sample at this time. refusing straight catheter. will attempt again for urine at later time.
[2023-07-02 20:38] LABS: Appearance Urine Clear (Clear); Bacteria Urine None Seen /hpf; Bilirubin Urine Negative (Negative); Blood Urine Negative (Negative); Color Urine Yellow (Yellow); Glucose Urine UA Negative (Negative); Ketones Urine Trace mg/dL (Negative); Leukocyte Esterase Ur Negative LEU/UL (Negative); Nitrate Urine Negative (Negative); Non Pathogenic Casts 0-2; Protein Urine Trace mg/dL (Negative); RBC Urine 0-2 /hpf (0-2); Specific Grav Ur 1.015 (1.001-1.035); Squamous Epithelial Cell Urine None seen /hpf (Few); WBC Urine 0-5 /hpf; pH Urine 5.5 (5.0-9.0)
[2023-07-02 20:52] LABS: Add Urine Microscopic? YES
[2023-07-02] MEDS: LACTATED RINGERS 1,000 ML 999 ML IV CONT (21:28)
--- NOTE | 2023-07-02 21:39 | ECG_ITS ---
Measurements Intervals [place] Rate: 81 P: 27 CO: 189 QRS: -7 QRSD: 102 T: 22 QT: 366 QTc: 427 Interpretive Statements SINUS RHYTHM POOR R-WAVE PROGRESSION NONSPECIFIC T-WAVE ABNORMALITY ABNORMAL ECG COMPARED TO ECG 07/02/2023 18:27:46 SINUS RHYTHM NOW PRESENT Electronically Signed On 07-03-2023 12:44:43 SHOT LIGHTER by Patrice Felix M.D.
[2023-07-02 21:54] LABS: Troponin I < 0.012 ng/mL (0.000-0.034)
== END 2023-07-02 22:24 | disposition home or self-care (01) ==
PROVIDERS: Emergency Provider Student in an Organized Health Care Education/Training Program; PCP Family Medicine
DX: U07.1 COVID-19 (principal); I95.1 Orthostatic hypotension; S01.01XA Laceration without foreign body of scalp, initial encounter; Z23 Encounter for immunization; I10 Essential (primary) hypertension; E78.5 Hyperlipidemia, unspecified; M19.90 Unspecified osteoarthritis, unspecified site; K21.9 Gastro-esophageal reflux disease without esophagitis; Z96.611 Presence of right artificial shoulder joint; Z87.891 Personal history of nicotine dependence; R00.0 Tachycardia, unspecified; R94.31 Abnormal electrocardiogram [ECG] [EKG]; W01.190A Fall on same level from slipping, tripping and stumbling with subsequent striking against furniture, initial encounter
CPT/HCPCS: 36415; 70450; 71046; 72125; 80053; 81001; 84484; 85025; 85380; 85610; 85730; 87637; 90471; 90715; 93005; 96360; 96361; 99284; J7030; J7120

== ENCOUNTER 2024-05-08 07:00 | Outpatient (NON) | payer MEDICARE, SELFPAY | END 2024-05-08 07:01 | disposition home or self-care (01) | LOC: ANHLAB 05-09 07:50 | PROVIDERS: PCP Family Medicine; Visit Provider Internal Medicine Gastroenterology | DX: K63.5 Polyp of colon (principal); Z86.0100 Personal history of colon polyps, unspecified | CPT/HCPCS: 88305 ==

== ENCOUNTER 2024-05-08 07:33 | Day surgery (SDC) | payer MEDICARE, OTHER, SELFPAY ==
[2024-04-03 14:09] VITALS: BMI 27.6
[2024-04-22 09:35] VITALS: BMI 26.6
--- NOTE | 2024-05-08 06:57 | WPDANESEPPF ---
Anes - Initial Pre Proc Eval Procedure: Operation Date: 05/08/24 09:30 Proposed Procedures p Diagnostic Colonoscopy - Eulogio Greer MD Date/Time: 05/08/24 06:57 Surgeon: Eulogio Greer MD Pre Op Diagnosis: Personal HX of Polyps Patient Data Age: 64 Gender: M Height: 1.75 m Weight: 82 kg Allergies Allergy/AdvReac Type Severity Reaction Status Date / Time No Known Allergies Allergy Unknown Verified 05/08/24 08:11 Home Medications Medication Instructions Recorded Confirmed Type calcium carbonate (Tums Ultra) 400 mg PO DAILY PRN Indigestion 12/14/21 05/08/24 History esomeprazole magnesium 20 mg 20 mg PO DAILY 12/14/21 05/08/24 History capsule,delayed release (Nexium) mecobalamin (vitamin B12) 500 mcg 500 mcg PO DAILY 09/27/23 05/08/24 History chewable tablet lisinopril 10 mg tablet 10 mg PO DAILY #90 tabs 01/22/24 05/08/24 Rx rosuvastatin 5 mg tablet 5 mg PO DAILY #90 tabs 03/11/24 05/08/24 Rx sodium,potassium,mag sulfates 17.5 See Rx Instructions PO .COMPLEX 04/03/24 05/08/24 Rx gram-3.13 gram-1.6 gram oral soln #354 mL (Suprep Bowel Prep Kit) Patient hx anesthesia problems: none Family hx anesthesia problems: none Results Review: All pre-operative results and documents have been reviewed as part of the pre-operative evaluation. FORMERLY [facility], [facility] Past Medical History Medical History (Updated 03/28/24 @ 13:46 by Tesfaye Singh MD) Encounter for immunization Gastroesophageal reflux disease without esophagitis Hyperlipidemia Hypertension Impaired fasting glucose Personal history of colonic polyps Surgical History Surgical History H/O colonoscopy with polypectomy 08/14/2018 History of arthroplasty of right shoulder (~05/26/22) Rt shoulder Anatomic total shoulder arthroplasty with Lesser tuberosity osteotomy Family History Family History Father Alcoholism Other Malignant neoplasm of prostate Social History Social History (Updated 09/27/23 @ 10:14 by Jannette Harmon MA) Social History: The patient is and lives with his Georgina. They have 3 children. 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 The patient quit smoking in 1984. The patient does not use any alcohol or marijuana or illicit drugs. His is the durable power city attorney for healthcare. Code status full code Smoking packs per day: 1 Smoking cigarettes per day: 20.0 Years smoked: 11 Smoking pack-years: 11.00 Smoking status: Former smoker Tobacco type: cigarettes Alcohol intake: current Drinks per week: 7 Alcohol use details: beer Substance use: never Substance use type: does not use Do You Feel Safe in your Home?: Yes Lack of Transportation: No Lack of Food: Never True Current Housing: I Have Housing Concerned About Future Housing: No Difficulty Paying Gas/Electric Bills: No Difficulty Paying for Meds: No Currently Unemployed: No Education: Trade/Vocational Certificate Difficulty w/ Childcare or Family Care: No Living arrangements: with family Additional living arrangements comments: Occupation/Education: occupation Gender identity (if verbalized by the patient): Male Sexual Orientation (if Verbalized by the Patient): Straight or Heterosexual Spiritual care concerns: No Anes - Eval Final PreProcedure Day of Procedure 05/08/24 06:57 Patient weight: overweight Heart: regular rate and rhythm Lungs: clear to auscultation Airway: Mallampati scale class III Neurological: alert and oriented Last oral intake: >/= 8 hours ASA classification: III Emergent: no Anesthetic plan: proceed Anesthesia type and monitoring: general GIVS and standard monitoring Results Review: All pre-operative results and documents have been reviewed as part of the pre-operative evaluation. Informed Consent: The patient's anesthetic plan and its attendan
--- NOTE | 2024-05-08 08:17 | PM.HPGS ---
History of Present Illness History of Present Illness Consent: Risks, benefits, and alternatives have been discussed and questions answered. Patient agrees to proceed with procedure. Chief complaint: Personal HX of Polyps Narrative: Uri Olivares is a 64 year old male presents for screening colonoscopy. Patient previously found to have colon polyps 5 years ago in 2019. Current weight appetite is are normal. He denies abdominal pain. Patient has had no bleeding. Family history is noncontributory. Review of Systems Review of Systems: All systems reviewed & are unremarkable except as noted in HPI and below PMFSH Past Medical History Medical History (Updated 03/28/24 @ 13:46 by Tesfaye Singh MD) Encounter for immunization Gastroesophageal reflux disease without esophagitis Hyperlipidemia Hypertension Impaired fasting glucose Personal history of colonic polyps Surgical History Surgical History H/O colonoscopy with polypectomy 08/14/2018 History of arthroplasty of right shoulder (~05/26/22) Rt shoulder Anatomic total shoulder arthroplasty with Lesser tuberosity osteotomy Family History Family History Father Alcoholism Other Malignant neoplasm of prostate Social History Social History (Updated 09/27/23 @ 10:14 by Jannette Harmon MA) Social History: The patient is and lives with his Georgina. They have 3 children. 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 The patient quit smoking in 1984. The patient does not use any alcohol or marijuana or illicit drugs. His is the durable power precision inspector for healthcare. Code status full code Smoking packs per day: 1 Smoking cigarettes per day: 20.0 Years smoked: 11 Smoking pack-years: 11.00 Smoking status: Former smoker Tobacco type: cigarettes Alcohol intake: current Drinks per week: 7 Alcohol use details: beer Substance use: never Substance use type: does not use Do You Feel Safe in your Home?: Yes Lack of Transportation: No Lack of Food: Never True Current Housing: I Have Housing Concerned About Future Housing: No Difficulty Paying Gas/Electric Bills: No Difficulty Paying for Meds: No Currently Unemployed: No Education: Trade/Vocational Certificate Difficulty w/ Childcare or Family Care: No Living arrangements: with family Additional living arrangements comments: Occupation/Education: occupation Gender identity (if verbalized by the patient): Male Sexual Orientation (if Verbalized by the Patient): Straight or Heterosexual Spiritual care concerns: No Meds Home Medications and Allergies Home Medications Medication Instructions Recorded Confirmed Type calcium carbonate (Tums Ultra) 400 mg PO DAILY PRN Indigestion 12/14/21 04/22/24 History esomeprazole magnesium 20 mg 20 mg PO DAILY 12/14/21 04/22/24 History capsule,delayed release (Nexium) mecobalamin (vitamin B12) 500 mcg 500 mcg PO DAILY 09/27/23 04/22/24 History chewable tablet lisinopril 10 mg tablet 10 mg PO DAILY #90 tabs 01/22/24 04/22/24 Rx rosuvastatin 5 mg tablet 5 mg PO DAILY #90 tabs 03/11/24 04/22/24 Rx sodium,potassium,mag sulfates 17.5 See Rx Instructions PO .COMPLEX 04/03/24 Rx gram-3.13 gram-1.6 gram oral soln #354 mL (Suprep Bowel Prep Kit) Allergies Allergy/AdvReac Type Severity Reaction Status Date / Time No Known Allergies Allergy Unknown Verified 05/08/24 08:11 Exam Narrative: Physical exam reveals patient to be alert. Vital signs stable. HEENT exam is unremarkable. Patient is anicteric. Lungs are clear to auscultation and to percussion. Heart is without murmur or extra sounds. Abdomen bowel sounds are present soft nontender with no organomegaly. Digital external rectal exam is normal. Assessment and Plan Assessment and plan (1) Personal history of colonic polyp
[2024-05-08 08:33] VITALS: BP 122/83; PULSE 87; RESP 18; TEMP 36.7; O2SAT 100; BMI 26.6
[2024-05-08] MEDS: LACTATED RINGERS 1,000 ML 150 ML IV CONT (08:36)
[2024-05-08 09:05] VITALS: BP 129/75; PULSE 74; RESP 16; O2SAT 95
[2024-05-08 09:15] VITALS: BP 118/78; PULSE 72; RESP 16; O2SAT 97
[2024-05-08 09:25] VITALS: BP 125/75; PULSE 68; RESP 16; O2SAT 100
--- NOTE | 2024-05-08 12:32 | WPDANESPN ---
Anes - Prog Note Post-Op Date/Time: 05/08/24 12:32 Cardiovascular status: normal Respiratory status: normal Airway patency: baseline Mental status: baseline Post-Op hydration status: normal Vital Signs: Last Vital Signs Temp 36.7 C 05/08/24 08:33 Pulse 68 05/08/24 09:25 Resp 16 05/08/24 09:25 BP 125/75 05/08/24 09:25 Pulse Ox 100 05/08/24 09:25 O2 Del Method Room Air 05/08/24 09:25 Pain Score (VAS): 0 I/O: Intake & Output 05/07/24 05/08/24 05/08/24 23:59 07:59 15:59 Intake Total 400 Balance 400 Post-procedural complaints: none Patient Feedback: Patient satisfied with anesthetic care. Other Findings: Patient vital signs back to baseline. Patient denies nausea and vomiting. Patient's pain under control. Patient OK for discharge.
== END 2024-05-08 09:34 | disposition home or self-care (01) ==
PROVIDERS: PCP Family Medicine; Visit Provider Internal Medicine Gastroenterology
PROC: 0DJD8ZZ Inspection of Lower Intestinal Tract, Via Natural or Artificial Opening Endoscopic (ICD-10-PCS; CPT 45378; principal; 2024-05-08 09:30)
DX: Z86.0100 Personal history of colon polyps, unspecified (principal); D12.2 Benign neoplasm of ascending colon; K57.30 Diverticulosis of large intestine without perforation or abscess without bleeding; K64.8 Other hemorrhoids
CPT/HCPCS: 45380

== ENCOUNTER 2025-05-26 10:11 | Outpatient (CLI) | payer MEDICARE, SELFPAY ==
--- NOTE | 2025-05-26 10:38 | EST_ITS ---
Patient Info Name: Uri Olivares Age: 65 years : 1960 Gender: Male Ht: 69 in Wt: 175 lbs BSA: 1.98 m2 HR: 67 bpm BP: 127 / 73 mmHg Exam Date: 05/26/2025 10:38 AM Patient Status: O Admit Date: 05/26/2025 Exam Type: CA stress test treadmill A treadmill exercise stress test was performed. Staff Attending Provider: Tesfaye Singh MD Exercise Technologist: Park Siddiqi Exercise Physician: Grant Mead DO Summary 1. 1. Negative Curtis exercise stress test for ischemic ST changes by ECG criteria. 2. 2. Reduced functional capacity, achieving 7 METs of workload. 3. 3. Appropriate HR response to exercise. 4. 4. Appropriate HR recovery at 1 minute post exercise. 5. 5. No imaging with stress testing. 6. 6. Patient informed of the above results. Protocol: Curtis Stress ECG Details Stage: REST Duration (min): 1 min : 12 sec Speed (mph): 0.0 Grade (%): 0 HR (bpm): 68 SBP (mmHg): 127 DBP (mmHg): 73 METS: --- Stage: REST Duration (min): 5 min : 19 sec Speed (mph): 0.0 Grade (%): 0 HR (bpm): 78 SBP (mmHg): 127 DBP (mmHg): 73 METS: --- Stage: STAGE 1 Duration (min): 1 min : 0 sec Speed (mph): 1.7 Grade (%): 10 HR (bpm): 99 SBP (mmHg): 127 DBP (mmHg): 73 METS: --- Stage: STAGE 1 Duration (min): 2 min : 0 sec Speed (mph): 1.7 Grade (%): 10 HR (bpm): 113 SBP (mmHg): 127 DBP (mmHg): 73 METS: --- Stage: STAGE 1 Duration (min): 3 min : 0 sec Speed (mph): 1.7 Grade (%): 10 HR (bpm): 121 SBP (mmHg): 145 DBP (mmHg): 60 METS: --- Stage: STAGE 2 Duration (min): 1 min : 0 sec Speed (mph): 2.5 Grade (%): 12 HR (bpm): 128 SBP (mmHg): 145 DBP (mmHg): 60 METS: --- Stage: STAGE 2 Duration (min): 2 min : 0 sec Speed (mph): 2.5 Grade (%): 12 HR (bpm): 134 SBP (mmHg): 161 DBP (mmHg): 57 METS: --- Stage: STAGE 2 Duration (min): 3 min : 0 sec Speed (mph): 2.5 Grade (%): 12 HR (bpm): 138 SBP (mmHg): 161 DBP (mmHg): 57 METS: --- Stage: RECOVERY Duration (min): 0 min : 59 sec Speed (mph): 0.0 Grade (%): 0 HR (bpm): 126 SBP (mmHg): 165 DBP (mmHg): 64 METS: --- Stage: RECOVERY Duration (min): 1 min : 59 sec Speed (mph): 0.0 Grade (%): 0 HR (bpm): 105 SBP (mmHg): 165 DBP (mmHg): 64 METS: --- Stage: RECOVERY Duration (min): 2 min : 59 sec Speed (mph): 0.0 Grade (%): 0 HR (bpm): 100 SBP (mmHg): 171 DBP (mmHg): 67 METS: --- Stage: RECOVERY Duration (min): 3 min : 59 sec Speed (mph): 0.0 Grade (%): 0 HR (bpm): 90 SBP (mmHg): 171 DBP (mmHg): 67 METS: --- Stage: RECOVERY Duration (min): 4 min : 59 sec Speed (mph): 0.0 Grade (%): 0 HR (bpm): 88 SBP (mmHg): 142 DBP (mmHg): 73 METS: --- Stage: RECOVERY Duration (min): 5 min : 59 sec Speed (mph): 0.0 Grade (%): 0 HR (bpm): 85 SBP (mmHg): 142 DBP (mmHg): 73 METS: --- Stage: RECOVERY Duration (min): 6 min : 59 sec Speed (mph): 0.0 Grade (%): 0 HR (bpm): 84 SBP (mmHg): 137 DBP (mmHg): 74 METS: --- Stage: RECOVERY Duration (min): 7 min : 3 sec Speed (mph): 0.0 Grade (%): 0 HR (bpm): 83 SBP (mmHg): 137 DBP (mmHg): 74 METS: --- Rest HR: 78 bpm Peak HR: 140 bpm Rest Sys BP: 127 mmHg Peak Sys BP: 171 mmHg Max Pred HR: 153 bpm % Max Pred HR: 92 % Target HR: 130 bpm Max RPP: 23,940 bpm*mmHg Preciado Score: 2 Termination Reason: Reached target heart rate or workload Cardiac Symptoms: Chest burning, Shortness of breath Max ST Seg Deviation: -0.90 mm Total Time: 6 min : 0 sec Rest Lechuga BP: 73 mmHg Peak Lechuga BP: 67 mmHg Angina Score: None Total METS: 7.1 Resting ECG Sinus rhythm. Stress ECG No ST changes. Arrhythmias None. Report Signatures
== END 2025-05-26 10:12 | disposition home or self-care (01) ==
LOC: ANHCARD 10:12
PROVIDERS: PCP Family Medicine; Visit Provider Family Medicine
DX: R07.9 Chest pain, unspecified (principal)
CPT/HCPCS: 93017